=== PATIENT | male | born 1950 | race Caucasian/White ===

== ENCOUNTER 2018-06-13 16:02 | Emergency (ER) | payer MEDICARE, OTHER ==
[2018-06-13 16:24] VITALS: BP 155/102
--- NOTE | 2018-06-13 16:55 | XRAY Report ---
Procedure Date: 06/13/2018 Accession Number: [id number] / [id number] Procedure: XR - Chest 2 View X-Ray CPT Code: 09613 FULL RESULT: EXAM: CHEST RADIOGRAPHY EXAM DATE: 06/13/2018 04:44 PM. CLINICAL HISTORY: Fall with pain. COMPARISON: None. TECHNIQUE: 2 views. FINDINGS: Lungs/Pleura: No focal opacities evident. No pleural effusion. No pneumothorax. Normal volumes. Mediastinum: Heart and mediastinal contours are unremarkable. Other: There are remote right-sided rib fractures. No clearly acute bony abnormalities are seen. IMPRESSION: No acute intrathoracic plain film abnormality. RADIA
--- NOTE | 2018-06-13 17:14 | ED Physician Documentation ---
PD HPI TRUNK INJURY - Stated complaint Stated Complaint: R RIB PX/ GLF - Chief complaint Chief Complaint: Trauma Ch/Bk - History obtained from History obtained from: Patient - History of Present Illness Location: Right chest Type of injury: Fall Timing - onset: Last night Quality: Pain Worsened by: Moving, Palpating Where injury occured: Home - Additional information Additional information: The patient is a 67-year-old male who presents with right posterior chest pain. His pain started last night after he fell while intoxicated. He denies any other injuries. He denies shortness of breath, neck pain, abdominal pain, nausea or vomiting. Review of Systems Constitutional: denies: Fever Nose: denies: Congestion Cardiac: reports: Chest pain / pressure. denies: Palpitations Respiratory: denies: Dyspnea, Cough GI: denies: Abdominal Pain, Nausea, Vomiting Skin: denies: Abrasion (s), Laceration (s) Musculoskeletal: denies: Neck pain, Back pain, Extremity pain Neurologic: denies: Focal weakness, Numbness, Headache, Head injury PD PAST MEDICAL HISTORY - Past Medical History Past Medical History: No - Past Surgical History Past Surgical History: Yes - Present Medications Home Medications: Ambulatory Orders Medication Instructions Recorded Confirmed oxyCODONE/ACET 5/325 [Percocet 5 1 tab PO Q6HR PRN #12 tablet 06/13/18 mg/325 mg] - Allergies Allergies/Adverse Reactions: Allergies Allergy/AdvReac Type Severity Reaction Status Date / Time No Known Drug Allergies Allergy Verified 06/13/18 16:24 - Social History Does the pt smoke?: No Smoking Status: Never smoker Does the pt drink ETOH?: Yes Does the pt have substance abuse?: Yes - Immunizations Immunizations are current?: Yes - POLST Patient has POLST: No PD ED PE NORMAL - Vitals Vital signs reviewed: Yes (Hypertensive initially.) - General General: Alert and oriented X 3, Well developed/nourished - HEENT HEENT: Atraumatic, EOMI - Neck Neck: No bony TTP, No adenopathy, No JVD - Cardiac Cardiac: RRR - Respiratory Respiratory: No respiratory distress, Clear bilaterally, Other (There is tenderness to palpation over the right posterolateral chest wall. There is a superficial abrasion in the affected area. There is no bony step-off with palpation over individual ribs.) - Abdomen Abdomen: Soft, Non tender - Back Back: No CVA TTP, No spinal TTP - Derm Derm: No rash - Extremities Extremities: No edema, No calf tenderness / cord - Neuro Neuro: Alert and oriented X 3, No motor deficit, Normal speech Results - Vitals Vitals: Vital Signs - 24 hr 06/13/18 16:19 Temperature 36.3 C L Heart Rate 106 H Respiratory 16 Rate Blood Pressure 155/102 H O2 Saturation 95 Oxygen O2 Source Room air - Rads (name of study) 2-view CXR Radiology: Prelim report reviewed, EMP read contemporaneously, See rad report ( No acute cardiopulmonary disease.) PD MEDICAL DECISION MAKING - ED course Complexity details: reviewed results, re-evaluated patient, considered differential, d/w patient, d/w family ED course: The patient's presentation is most consistent with right chest wall contusion secondary to fall. There is no evidence of pneumothorax or rib fracture on x- ray examination. Treatment in the emergency department included administration of ibuprofen 800 mg orally. I discussed with him and his the expected course of injury, symptomatic treatment and outpatient follow-up, as well as potentially worrisome signs or symptoms that should prompt reevaluation in the emergency department. - Sepsis Event Vital Signs: Vital Signs - 24 hr 06/13/18 16:19 Temperature 36.3 C L Heart Rate 106 H Respiratory 16 Rate Blood Pressure 155/102 H O2 Saturation 95 Oxygen O2 Source Room air Departure - Departure Disposition: 01 Home, Self Care Clinical Impression: Contusion of chest wall Condition: Stable Instructions: ED Contusion Chest Wall Follow-Up: [facility] [Provider Group] Prescriptions: oxyCODONE/ACET 5/325 [Percocet 5 mg/325 mg] 1 tab PO Q6HR PRN #12 tablet PRN Reason: Pain Comments: You can use ibuprofen, up to 800 mg 3 times daily for its anti-inflammatory effect. You can use Vicodin as prescribed if needed for pain. Follow-up with primary physician within 2 weeks. Call to schedule appointment. Return to the emergency [place] if you develop increasing difficulty breathing, or otherwise worsening symptoms.
[2018-06-13] MEDS ORDERED: IBUPROFEN 800 MG TABLET PO STA (17:20)
== END 2018-06-13 17:34 | disposition home or self-care (01) ==
LOC: ED 16:02
DX: S20.411A Abrasion of right back wall of thorax, initial encounter (principal); W19.XXXA Unspecified fall, initial encounter; Y92.009 Unspecified place in unspecified non-institutional (private) residence as the place of occurrence of the external cause
CPT/HCPCS: 71046; 99281; 99283; A9270

== ENCOUNTER 2019-10-16 08:58 | Outpatient (CLI) | payer MEDICARE, OTHER | END 2019-10-16 08:59 | disposition critical access hospital (66) | LOC: EMS 08:58 | PROVIDERS: ATTEND Surgery | DX: R07.89 Other chest pain (principal); R06.02 Shortness of breath; F41.9 Anxiety disorder, unspecified; R19.7 Diarrhea, unspecified | CPT/HCPCS: A0425; A0427 ==

== ENCOUNTER 2019-10-16 09:30 | Emergency (ER) | payer MEDICARE, OTHER ==
[2019-10-16] MEDS ORDERED: SODIUM CHLORIDE 0.9% 1,000 ML IV ONE ×3 (09:38→11:52)
[2019-10-16 10:45] LABS: BASOPHILS % (AUTO) 0.6 %; EOSINOPHILS % (AUTO) 0.2 %; HGB - HEMOGLOBIN 16.8 g/dL (14.0-18.0); LYMPHOCYTES # (AUTO) 0.4 10^3/uL (1.5-3.5); MEAN CORPUSCULAR HEMOGLOBIN 33.9 pg (27.0-31.0); MEAN CORPUSCULAR HGB CONC 36.3 g/dL (32.0-36.0); MEAN CORPUSCULAR VOLUME 93.3 fL (80.0-94.0); MEAN PLATELET VOLUME 9.8 fL (7.4-11.4); MONOCYTES # (AUTO) 0.7 10^3/uL (0.0-1.0); MONOCYTES % (AUTO) 15.5 %; NEUTROPHILS # (AUTO) 3.6 10^3/uL (1.5-6.6); NEUTROPHILS % (AUTO) 75.1 %; PLT - PLATELET COUNT 284 10^3/uL (130-450); RED BLOOD COUNT 4.96 10^6/uL (4.70-6.10); RED CELL DISTRIBUTION WIDTH 12.2 % (12.0-15.0); WHITE BLOOD COUNT 4.8 x10^3/uL (4.8-10.8)
[2019-10-16] MEDS ORDERED: chlordiazePOXIDE 25 MG CAPSULE PO STA (10:59)
[2019-10-16] MEDS ORDERED: LORazepam 2 MG/ML VIAL IVP STA (10:59)
[2019-10-16 11:03] LABS: ALBUMIN 3.5 g/dL (3.2-5.5); ALBUMIN/GLOBULIN RATIO 1.2 (1.0-2.2); BILIRUBIN,TOTAL 1.2 mg/dL (0.2-1.0); CREATININE 0.7 mg/dL (0.6-1.2); MAGNESIUM 1.9 mg/dL (1.7-2.8); PHOSPHORUS 2.9 mg/dL (2.5-4.6); TOTAL PROTEIN 6.5 g/dL (6.7-8.2)
--- NOTE | 2019-10-16 11:05 | ED Physician Documentation ---
History of Present Illness - Stated complaint Stated Complaint: ALCOHOL WITHDRAWL - Chief complaint Chief Complaint: Cardiac - History obtained from History obtained from: Patient, EMS - History of Present Illness Timing: Today Pain level max: 1 Pain level now: 0 - Additonal information Additional information: 69-year-old male states that since approximately 2 AM he has felt a discomfort in his chest. He says it is not a pain or pressure, but more a "noticeable feeling". This lasted for approximately 4 hours. This is now resolved. No history of cardiac disease in the past. He is an alcoholic and last drink approximately 6 days ago. EMS felt that he was in alcohol withdrawal and gave him Versed, he feels better after this. No vomiting. No abdominal pain. No diarrhea. No seizures. No hallucinations. No suicidal or homicidal thoughts. Review of Systems Constitutional: denies: Fever, Chills Cardiac: denies: Palpitations Respiratory: denies: Cough GI: denies: Nausea, Vomiting, Diarrhea Skin: denies: Rash Musculoskeletal: denies: Neck pain, Back pain PD PAST MEDICAL HISTORY - Past Medical History Past Medical History: Yes GI: Hepatitis Psych: Depression - Past Surgical History Past Surgical History: Yes - Allergies Allergies/Adverse Reactions: Allergies Allergy/AdvReac Type Severity Reaction Status Date / Time No Known Drug Allergies Allergy Verified 10/16/19 09:43 - Social History Does the pt smoke?: No Smoking Status: Never smoker Does the pt drink ETOH?: Yes Does the pt have substance abuse?: Yes - Immunizations Immunizations are current?: Yes - POLST Patient has POLST: No PD ED PE NORMAL - Vitals Vital signs reviewed: Yes - General General: Alert and oriented X 3, No acute distress, Well developed/nourished - HEENT HEENT: PERRL, Moist mucous membranes, Pharynx benign - Neck Neck: Supple, no meningeal sign - Cardiac Cardiac: RRR, Strong equal pulses - Respiratory Respiratory: No respiratory distress, Clear bilaterally - Abdomen Abdomen: Soft, Non tender, Non distended - Back Back: No spinal TTP - Derm Derm: Warm and dry - Extremities Extremities: No edema - Neuro Neuro: Alert and oriented X 3, handle sewer 2-12 intact, No motor deficit, No sensory deficit, Normal speech Eye Opening: Spontaneous Motor: Obeys Commands Verbal: Oriented GCS Score: 15 - Psych Psych: Normal mood, Normal affect Results - Vitals Vitals: Vital Signs - 24 hr 10/16/19 10/16/19 10/16/19 09:33 09:36 11:11 Temperature 36.4 C L Heart Rate 96 93 96 Respiratory 18 22 18 Rate Blood Pressure 172/115 H 169/106 H 169/106 H O2 Saturation 99 100 98 10/16/19 12:56 Temperature Heart Rate 101 H Respiratory 18 Rate Blood Pressure 153/100 H O2 Saturation 98 Oxygen O2 Source Room air - EKG (time done) 0938 Rate: Rate (enter#) (91) Rhythm: NSR [place]: Normal Intervals: Normal IA QRS: Normal Ischemia: Other (flat t waves) - Labs Labs: Laboratory Tests 10/16/19 10/16/19 10/16/19 10:23 10:23 10:23 WBC 4.8 RBC 4.96 Hgb 16.8 Hct 46.3 MCV 93.3 MCH 33.9 H MCHC 36.3 H RDW 12.2 Plt Count 284 MPV 9.8 Neut # (Auto) 3.6 Lymph # (Auto) 0.4 L Elliott # (Auto) 0.7 Eos # (Auto) 0.0 Baso # (Auto) 0.0 Absolute Nucleated RBC 0.00 Nucleated RBC % 0.0 Manual Slide Review Indicated WBC Morphology Platelet Estimate NORMAL (130-450,000) Platelet Morphology 1+ LARGE PLATELETS RBC Morph Micro Appear NORMAL APPEARANCE Sodium 131 L Potassium 2.7 L Chloride 97 L Carbon Dioxide 19 L Anion Gap 15.0 H BUN 18 Creatinine 0.7 Estimated GFR (MDRD) 111 Glucose 176 H Calcium 8.0 L Phosphorus 2.9 Magnesium 1.9 Total Bilirubin 1.2 H AST 64 H ALT 47 Alkaline Phosphatase 53 Troponin I High Sens Total Protein 6.5 L Albumin 3.5 Globulin 3.0 Albumin/Globulin Ratio 1.2 Lipase 34 Ethyl Alcohol < 5.0 10/16/19 10:23 WBC RBC Hgb Hct MCV MCH MCHC RDW Plt Count MPV Neut # (Auto) Lymph # (Auto) Elliott # (Auto) Eos # (Auto) Baso # (Auto) Absolute Nucleated RBC Nucleated RBC % Manual Slide Review WBC Morphology Platelet Estimate Platelet Morphology RBC Morph Micro Appear Sodium Potassium Chloride Carbon Dioxide Anion Gap BUN Creatinine Estimated GFR (MDRD) Glucose Calcium Phosphorus Magnesium Total Bilirubin AST ALT Alkaline Phosphatase Troponin I High Sens 3738.0 H* Total Protein Albumin Globulin Albumin/Globulin Ratio Lipase Ethyl Alcohol - Rads (name of study) Chest x-ray Radiology: Prelim report reviewed, EMP read contemporaneously, See rad report (No acute disease) PD MEDICAL DECISION MAKING - ED course Complexity details: reviewed results, re-evaluated patient, considered differential, d/w patient ED course: 69-year-old male found to have an NSTEMI. Started on a heparin drip. Given heparin bolus. Given aspirin. Potassium was replaced as well. Discussed the case with Dr. Melinda [id number], cardiology at [facility] who graciously accepts in transfer. This document was made in part using voice recognition software. While efforts are made to proofread this document, sound alike and grammatical errors may occur. Departure - Departure Disposition: 02 Transfer Acute Care Hosp Clinical Impression: NSTEMI (non-ST elevated myocardial infarction) Condition: Stable
[2019-10-16 11:13] LABS: PLATELET ESTIMATE, MANUAL NORMAL (130-450,000) (NORMAL); PLATELET MORPHOLOGY 1+ LARGE PLATELETS (NORMAL); RBC MORPHOLOGY (MULTIPLE) NORMAL APPEARANCE (NORMAL)
[2019-10-16] MEDS ORDERED: DIPHENOX/ATROPINE 2.5/0.025 MG TABLET PO STA (11:17)
[2019-10-16] MEDS ORDERED: POTASSIUM CHLORIDE 20 MEQ TABLET PO STA (11:26)
[2019-10-16] MEDS ORDERED: HEPARIN 25000UNITS/500ML (D5W) 25,000 UNIT/500 ML BAG IV STA (12:04)
[2019-10-16] MEDS ORDERED: HEPARIN 5,000 UNIT/ML VIAL IVP STA (12:04)
[2019-10-16] MEDS ORDERED: ASPIRIN CHEW 81 MG TABLET PO STA (12:04)
[2019-10-16 14:39] VITALS: BP 127/86
--- NOTE | 2019-10-18 04:53 | XRAY Report ---
Reason: chest pain Procedure Date: 10/16/2019 Accession Number: [id number] / [id number] Procedure: XR - Chest 1 View X-Ray CPT Code: 03796 Final Report FULL RESULT: EXAM: CHEST RADIOGRAPHY EXAM DATE: 10/16/2019 12:27 PM. CLINICAL HISTORY: Chest pain. COMPARISON: CHEST 2 VIEW 06/13/2018 4:37 PM. TECHNIQUE: 1 view. FINDINGS: Lungs/Pleura: No significant consolidation, effusion, or definite pneumothorax. Mediastinum: Cardiac silhouette is within normal limits when accounting for lung volumes and technique. Other: Old healed fractures of the right lateral chest noted. IMPRESSION: Stable appearance. No acute cardiopulmonary abnormality demonstrated. RADIA
== END 2019-10-16 14:51 | disposition short-term general hospital (02) ==
LOC: EDUNIT# → ED 09:30
DX: I21.4 Non-ST elevation (NSTEMI) myocardial infarction (principal); F10.20 Alcohol dependence, uncomplicated
CPT/HCPCS: 36415; 71045; 80053; 83690; 83735; 84100; 84484; 85025; 93005; 96361; 96374; 96375; 99284; 99285; A9270; J2060; 80320

== ENCOUNTER 2019-10-16 15:02 | Outpatient (CLI) | payer MEDICARE, OTHER | END 2019-10-16 15:03 | disposition short-term general hospital (02) | LOC: EMS 15:02 | PROVIDERS: ATTEND Surgery | DX: I21.4 Non-ST elevation (NSTEMI) myocardial infarction (principal) | CPT/HCPCS: A0425; A0426 ==

== ENCOUNTER 2021-09-08 11:50 | Outpatient (CLI) | payer MEDICARE, OTHER ==
--- NOTE | 2021-09-08 15:35 | XRAY Report ---
PROCEDURE: Shoulder 3 View RT INDICATIONS: SHOULDER JOINT PAIN, RIGHT TECHNIQUE: 3 views of the shoulder were acquired. COMPARISON: None. FINDINGS: Bones: No fractures or dislocations. No suspicious bony lesions. Visualized ribs appear intact. N arrowing of the glenohumeral articulation. Soft tissues: Calcifications overlying the humeral head, compatible with calcific tendinopathy. IMPRESSION: 1. No acute osseous abnormality. 2. Calcific tendinopathy. Reviewed by: Smith Segovia MD on 09/08/2021 3:33 PM PDT Approved by: Smith Segovia MD on 09/08/2021 3:33 PM PDT Station ID: [id number]
== END 2021-09-08 11:51 ==
LOC: DI.S 11:50
PROVIDERS: ATTEND Emergency Medicine
DX: M25.511 Pain in right shoulder (principal); M75.81 Other shoulder lesions, right shoulder

== ENCOUNTER 2021-09-19 10:51 | Outpatient (CLI) | payer MEDICARE | END 2021-09-19 10:52 | disposition short-term general hospital (02) | LOC: EMS 10:51 | DX: S50.312A Abrasion of left elbow, initial encounter (principal); M25.551 Pain in right hip; W01.0XXA Fall on same level from slipping, tripping and stumbling without subsequent striking against object, initial encounter; Y92.009 Unspecified place in unspecified non-institutional (private) residence as the place of occurrence of the external cause | CPT/HCPCS: A0425; A0427 ==

== ENCOUNTER 2021-10-04 08:00 | Outpatient (CLI) | payer MEDICARE ==
[2021-10-04 16:01] LABS: BASOPHILS # (AUTO) 0.1 10^3/uL (0.0-0.1); BASOPHILS % (AUTO) 1.2 %; EOSINOPHILS # (AUTO) 0.2 10^3/uL (0.0-0.7); EOSINOPHILS % (AUTO) 3.8 %; HCT - HEMATOCRIT 35.5 % (42.0-52.0); HGB - HEMOGLOBIN 12.5 g/dL (14.0-18.0); LYMPHOCYTES # (AUTO) 1.3 10^3/uL (1.5-3.5); LYMPHOCYTES % (AUTO) 21.5 %; MEAN CORPUSCULAR HGB CONC 35.2 g/dL (32.0-36.0); MEAN PLATELET VOLUME 9.9 fL (7.4-11.4); MONOCYTES # (AUTO) 0.6 10^3/uL (0.0-1.0); MONOCYTES % (AUTO) 10.1 %; NEUTROPHILS # (AUTO) 3.8 10^3/uL (1.5-6.6); NEUTROPHILS % (AUTO) 63.2 %; PLT - PLATELET COUNT 327 10^3/uL (130-450); RED BLOOD COUNT 3.38 10^6/uL (4.70-6.10); WHITE BLOOD COUNT 6.1 x10^3/uL (4.8-10.8)
== END 2021-10-04 08:01 | disposition home or self-care (01) ==
LOC: LAB.R 08:00
PROVIDERS: ATTEND Family Medicine
DX: D64.9 Anemia, unspecified (principal)
CPT/HCPCS: 85025